=== PATIENT | male | born 1985 | race Caucasian/White ===

== ENCOUNTER 2019-04-21 19:01 | Emergency (ER) | payer OTHER ==
--- NOTE | 2019-04-21 19:41 | EDM.PDOC ---
ED HPI GENERAL MEDICAL PROBLEM - General Chief Complaint: Lower Extremity Injury/Pain Stated Complaint: PT HURT RT BIG TOE Time Seen by Provider: 04/21/19 19:38 Source of Information: Reports: Patient - History of Present Illness INITIAL COMMENTS - FREE TEXT/NARRATIVE: HISTORY AND PHYSICAL: History of present illness: []Days [place] the airport he has right great toe stuck in an escalator, or stubbed the toe on the escalator he is not sure exactly what happened as it fell out simultaneously as 5 out of 10 right great toe pain nonradiating tender to the touch on lateral border and medial toenail is intact no redness warmth or exudates I have offered x-ray and lab patient refuses both hence I have little to offer outside of this toe is tender Review of systems: As per history of present illness and below otherwise all systems reviewed and negative. Past medical history: As per history of present illness and as reviewed below otherwise noncontributory. Surgical history: As per history of present illness and as reviewed below otherwise noncontributory. Social history: No reported history of drug or alcohol abuse. Family history: As per history of present illness and as reviewed below otherwise noncontributory. Physical exam: HEENT: Atraumatic, normocephalic, pupils reactive, negative for conjunctival pallor or scleral icterus, mucous membranes moist, throat clear, neck supple, nontender, trachea midline. Lungs: Clear to auscultation, breath sounds equal bilaterally, chest nontender. Heart: S1S2, regular, negative for clicks, rubs, or JVD. Abdomen: Soft, nondistended, nontender. Negative for masses or hepatosplenomegaly. Negative for costovertebral tenderness. Pelvis: Stable nontender. Genitourinary: Deferred. Rectal: Deferred. Extremities: Atraumatic, negative for cords or calf pain. Neurovascular unremarkable. Neuro: Awake, alert, oriented. Cranial nerves II through XII unremarkable. Cerebellum unremarkable. Motor and sensory unremarkable throughout. Exam nonfocal. Diagnostics: ptrefuses lab or x-ray] Therapeutics: [Rest ice ibuprofen Consider raad tape Hard soled shoe offered] Impression: [Right great toe injury] Definitive disposition and diagnosis as appropriate pending reevaluation and review of above. right toe Pain Score (Numeric/FACES): 9 - Related Data Allergies Allergy/AdvReac Type Severity Reaction Status Date / Time No Known Allergies Allergy Verified 04/21/19 19:21 Home Meds: Home Meds Escitalopram [Lexapro] 20 mg PO DAILY 04/21/19 [History] Omeprazole 04/21/19 [History] Review of Systems - Review of Systems Review Of Systems: See Below ED EXAM, GENERAL - Physical Exam Exam: See Below Course - Vital Signs Last Recorded V/S: Last Vital Signs Temp 97.1 F 04/21/19 19:22 Pulse 88 04/21/19 19:22 Resp 16 04/21/19 19:22 BP 140/80 04/21/19 19:22 Pulse Ox 95 04/21/19 19:22 - Orders/Labs/Meds Orders: Active Orders 24 hr Category Date Time Status Toes Great Toe Rt T5 [CR] Stat Exams 04/21/19 19:30 Ordered Departure - Departure Time of Disposition: 19:40 Disposition: Home, Self-Care 01 Condition: Good Clinical Impression: Injury of right great toe - Discharge Information Referrals: PCP,None [Primary Care Provider] - Additional Instructions: The following information is given to patients seen in the emergency department who are being discharged to home. This information is to outline your options for follow-up care. We provide all patients seen in our emergency department with a follow-up referral. The need for follow-up, as well as the timing and circumstances, are variable depending upon the specifics of your emergency department visit. If you don't have a primary care physician on staff, we will provide you with a referral. We always advise you to contact your personal physician following an emergency department visit to inform them of the circumstance of the visit and for follow-up with them and/or the need for any referrals to a consulting specialist. The emergency department will also refer you to a specialist when appropriate. This referral assures that you have the opportunity for follow-up care with a specialist. All of these measure are taken in an effort to provide you with optimal care, which includes your follow-up. Under all circumstances we always encourage you to contact your private physician who remains a resource for coordinating your care. When calling for follow-up care, please make the office aware that this follow-up is from your recent emergency room visit. If for any reason you are refused follow-up, please contact the [facility] emergency department at and asked to speak to the emergency department charge nurse. - My Orders Last 24 Hours: My Active Orders 04/21/19 19:30 Toes Great Toe Rt T5 [CR] Stat - Assessment/Plan Last 24 Hours: My Active Orders 04/21/19 19:30 Toes Great Toe Rt T5 [CR] Stat
== END 2019-04-21 19:51 | disposition home or self-care (01) ==
LOC: MW.ED 19:01
DX: S99.921A Unspecified injury of right foot, initial encounter (principal); Z79.899 Other long term (current) drug therapy; W22.8XXA Striking against or struck by other objects, initial encounter; Y92.520 Airport as the place of occurrence of the external cause
CPT/HCPCS: 99282; 99283

== ENCOUNTER 2019-10-07 07:20 | Emergency (ER) | payer OTHER ==
[2019-10-07] MEDS: Sodium Chloride 0.9% 1,000 ML IV SCH ×2 (07:48→09:32)
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
--- NOTE | 2019-10-07 08:12 | CR ---
INDICATION: ETOH. TECHNIQUE: Chest 1 view COMPARISON: None. FINDINGS: No focal consolidation, pleural effusion, or pneumothorax. Normal heart size and pulmonary vascularity. The bones are unremarkable. IMPRESSION: No acute cardiopulmonary findings. Dictated by Karen Thrasher MD @ Oct 07 2019 8:10AM Signed by Dr. Karen Thrasher @ Oct 07 2019 8:11AM
[2019-10-07 08:34] LABS: BLOOD UREA NITROGEN,BUN 10 mg/dL (7.0-18.0); CARBON DIOXIDE,CO2 26.2 mmol/L (21.0-32.0); CHLORIDE,CL 109 mmol/L (98-107); GLUCOSE RANDOM 107 mg/dL (74-106); POTASSIUM,K 3.9 mmol/L (3.5-5.1); SODIUM,NA 147 mmol/L (136-148)
[2019-10-07] MEDS: LORazepam 2 MG/ML SDV IVPUSH ONE ×2 (08:45→09:32)
== END 2019-10-07 10:57 | disposition home or self-care (01) ==
LOC: MW.ED 07:20
DX: F10.10 Alcohol abuse, uncomplicated (principal); Y90.8 Blood alcohol level of 240 mg/100 ml or more; F17.210 Nicotine dependence, cigarettes, uncomplicated
CPT/HCPCS: 36415; 71045; 71045-26; 80053; 80305-QW; 82375; 83735; 85025; 96361; 96374; 99283; 99285-25; G0480; J2060; J7030

== ENCOUNTER 2019-10-07 23:49 | Emergency (ER) | payer OTHER ==
[2019-10-08] MEDS ORDERED: Diazepam 2 MG Tab PO ONE (00:33)
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
== END 2019-10-08 01:03 | disposition home or self-care (01) ==
LOC: MW.ED 23:49
DX: F10.230 Alcohol dependence with withdrawal, uncomplicated (principal); F17.210 Nicotine dependence, cigarettes, uncomplicated; Z79.899 Other long term (current) drug therapy
CPT/HCPCS: 99284; A9270; 99283

== ENCOUNTER 2019-10-08 10:49 | Observation (INO) | payer OTHER ==
--- NOTE | 2019-10-08 11:33 | EDM.PDOC ---
ED HPI GENERAL MEDICAL PROBLEM - General Chief Complaint: General Stated Complaint: ALCOHOL WITHDRAWALS Time Seen by Provider: 10/08/19 11:15 Source of Information: Reports: Patient History Limitations: Reports: No Limitations - History of Present Illness INITIAL COMMENTS - FREE TEXT/NARRATIVE: Returns for the third time in two days stating that he wants help to deal with his alcohol. He states that he has never had a seizure and does not do any other drugs. I discussed this case with the Resident of Dr. Lynch. He said he would talk with her and come down to see the patient. Onset: Gradual Duration: Chronic Severity: Moderate (alcohol abuse wanting help.) Improves with: Reports: Medication (Ativan) Worsens with: Reports: Other (Not taking meds and drinking whisky and beer.) - Related Data Allergies Allergy/AdvReac Type Severity Reaction Status Date / Time No Known Allergies Allergy Verified 10/08/19 10:55 Past Medical History HEENT History: Reports: None Cardiovascular History: Reports: Arrhythmia Respiratory History: Reports: None Gastrointestinal History: Reports: None Genitourinary History: Reports: None Musculoskeletal History: Reports: Back Pain, Chronic Neurological History: Reports: None Psychiatric History: Reports: Anxiety, Depression Endocrine/Metabolic History: Reports: None Hematologic History: Reports: None Immunologic History: Reports: None Oncologic (Cancer) History: Reports: None Dermatologic History: Reports: None - Infectious Disease History Infectious Disease History: Reports: Chicken Pox - Past Surgical History Head Surgeries/Procedures: Reports: None HEENT Surgical History: Reports: None Cardiovascular Surgical History: Reports: None Respiratory Surgical History: Reports: None GI Surgical History: Reports: None Male Surgical History: Reports: None Endocrine Surgical History: Reports: None Neurological Surgical History: Reports: None Musculoskeletal Surgical History: Reports: None Oncologic Surgical History: Reports: None Dermatological Surgical History: Reports: None Social & Family History - Family History Family Medical History: Noncontributory - Caffeine Use Caffeine Use: Reports: Coffee, Energy Drinks, Soda, Tea - Recreational Drug Use Recreational Drug Use: No ED ROS GENERAL - Review of Systems Review Of Systems: See Below Constitutional: Reports: No Symptoms HEENT: Reports: No Symptoms Respiratory: Reports: No Symptoms Cardiovascular: Reports: No Symptoms Endocrine: Reports: No Symptoms GI/Abdominal: Reports: No Symptoms : Reports: No Symptoms Musculoskeletal: Reports: No Symptoms Skin: Reports: No Symptoms Neurological: Reports: No Symptoms Psychiatric: Reports: Anxiety. Denies: Hallucinations, Homicidal Ideation, Suicidal Ideation Hematologic/Lymphatic: Reports: No Symptoms Immunologic: Reports: No Symptoms ED EXAM, GENERAL - Physical Exam Exam: See Below Free Text/Narrative:: Returns for the third time in two days stating that he wants help to deal with his alcohol. He states that he has never had a seizure and does not do any other drugs. I discussed this case with the Resident of Dr. Lynch. He said he would talk with her and come down to see the patient. Exam Limited By: No Limitations General Appearance: Alert, WD/WN, No Apparent Distress, Anxious Eye Exam: Bilateral Eye: Normal Fundi, Normal Inspection, PERRL Ears: Normal External Exam, Normal Canal, Hearing Grossly Normal, Normal TMs Ear Exam: Bilateral Ear: Auricle Normal, Canal Normal, TM normal Nose: Normal Inspection, Normal Mucosa, No Blood Throat/Mouth: Normal Inspection, Normal Lips, Normal Teeth, Normal Gums, Normal Oropharynx, Normal Voice, No Airway Compromise Head: Atraumatic, Normocephalic Neck: Normal Inspection, Supple, Non-Tender, Full Range of Motion Respiratory/Chest: No Respiratory Distress, Lungs Clear, Normal Breath Sounds, No Accessory Muscle Use, Chest Non-Tender Cardiovascular: Normal Peripheral Pulses, Regular Rate, Rhythm, No Edema, No Gallop, No JVD, No Murmur, No Rub Peripheral Pulses: 4+: Carotid (L), Carotid (R), Radial (L), Radial (R), Popliteal (L), Popliteal (R), Dorsalis Pedis (L), Dorsalis Pedis (R) GI/Abdominal: Normal Bowel Sounds, Soft, Non-Tender, No Organomegaly, No Distention, No Abnormal Bruit, No Mass. No: Hepatomegaly Back Exam: Normal Inspection, Full Range of Motion, NT Extremities: Normal Inspection, Normal Range of Motion, Non-Tender, Normal Capillary Refill, No Pedal Edema Neurological: Alert, Oriented, CN II-XII Intact, Normal Cognition, Normal Gait, Normal Reflexes, No Motor/Sensory Deficits Psychiatric: Anxious, Tearful (anking for help dealing with his alcohol problem. ) Lymphatic: No Adenopathy Course - Vital Signs Last Recorded V/S: Last Vital Signs Temp 97.0 F 10/08/19 10:56 Pulse 85 12/21/19 10:56 Resp 19 10/08/19 10:56 BP 136/97 H 10/08/19 10:56 Pulse Ox 99 10/08/19 10:56 - Orders/Labs/Meds Orders: Active Orders 24 hr Category Date Time Status Admission Status [Patient Status] [ADT] Stat ADT 10/08/19 13:05 Active CIWAA Assessment [RC] Q1H Care 10/08/19 13:07 Active DRUG SCREEN, URINE [URCHEM] Stat Lab 10/08/19 11:52 Ordered LORazepam [Ativan] Med 10/08/19 11:45 Active 1 mg IVPUSH Q8H PRN LORazepam [Ativan] Med 10/08/19 13:10 Active See Protocol IVPUSH Q2H PRN MVI, Adult with Vitamin K [Infuvite Adult] 10 ml Med 10/08/19 11:43 Active Thiamine [Vitamin B-1] 100 mg Folic Acid 1 mg Sodium Chloride 0.9% [Normal Saline] 1,000 ml IV ONETIME Code Status [Resuscitation Status] Stat Resus Stat 10/08/19 13:07 Ordered Medication Orders Multivitamins/Minerals 10 ml/Thiamine HCl 100 mg/ Folic Acid 1 mg/ Sodium Chloride 1,011.2 mls @ 125 mls/hr IV ONETIME ONE Stop: 10/08/19 19:48 Last Admin: 10/08/19 11:59 Dose: 125 mls/hr Lorazepam (Ativan) 1 mg IVPUSH Q8H PRN PRN Reason: Agitation Last Admin: 10/08/19 11:58 Dose: 1 mg Lorazepam (Ativan) 0 mg IVPUSH Q2H PRN; Protocol PRN Reason: Anxiety Labs: Laboratory Tests 10/08/19 10/08/19 Range/Units 12:00 12:00 WBC 5.61 (4.0-11.0) K/uL RBC 4.74 (4.50-5.90) M/uL Hgb 14.8 (13.0-17.0) g/dL Hct 43.1 (38.0-50.0) % MCV 90.9 (80.0-98.0) fL MCH 31.2 (27.0-32.0) pg MCHC 34.3 (31.0-37.0) g/dL RDW Std Deviation 42.3 (28.0-62.0) fl RDW Coeff of Rosalee 13 (11.0-15.0) % Plt Count 266 (150-400) K/uL MPV 9.80 (7.40-12.00) fL Neut % (Auto) 44.7 L (48.0-80.0) % Lymph % (Auto) 40.1 H (16.0-40.0) % [place] % (Auto) 8.4 (0.0-15.0) % Eos % (Auto) 6.1 (0.0-7.0) % Baso % (Auto) 0.7 (0.0-1.5) % Neut # (Auto) 2.5 (1.4-5.7) K/uL Lymph # (Auto) 2.3 (0.6-2.4) K/uL [place] # (Auto) 0.5 (0.0-0.8) K/uL Eos # (Auto) 0.3 (0.0-0.7) K/uL Baso # (Auto) 0.0 (0.0-0.1) K/uL Nucleated RBC % 0.0 /100WBC Nucleated RBCs # 0 K/uL Sodium 145 (136-148) mmol/L Potassium 4.0 (3.5-5.1) mmol/L Chloride 107 (98-107) mmol/L Carbon Dioxide 29.4 (21.0-32.0) mmol/L BUN 11 (7.0-18.0) mg/dL Creatinine 0.9 (0.8-1.3) mg/dL Est Cr Clr Drug Dosing 120.54 mL/min Estimated GFR (MDRD) > 60.0 ml/min Glucose 92 (74-106) mg/dL Calcium 8.0 L (8.5-10.1) mg/dL Magnesium 1.7 L (1.8-2.4) mg/dL Total Bilirubin 0.3 (0.2-1.0) mg/dL AST 28 (15-37) IU/L ALT 39 (14-63) IU/L Alkaline Phosphatase 79 (46-116) U/L Total Protein 6.7 (6.4-8.2) g/dL Albumin 3.7 (3.4-5.0) g/dL Globulin 3.0 (2.6-4.0) g/dL Albumin/Globulin Ratio 1.2 (0.9-1.6) Ethyl Alcohol 271 mg/dL Meds: Medications Generic Name Dose Route Start Last Admin Trade Name Freq PRN Reason Stop Dose Admin Multivitamins/Minerals 10 ml/ 1,011.2 mls @ 125 mls/hr 10/08/19 11:43 11:59 Thiamine HCl 100 mg/ Folic IV 10/08/19 19:48 125 mls/hr Acid 1 mg/ Sodium Chloride ONETIME ONE Administration Lorazepam 1 mg 10/08/19 11:45 10/08/19 11:58 Ativan IVPUSH 1 mg Q8H PRN Administration Agitation Lorazepam 0 mg 10/08/19 13:10 Ativan IVPUSH Q2H PRN Anxiety Protocol Discontinued Medications Generic Name Dose Route Start Last Admin Trade Name Freq PRN Reason Stop Dose Admin Ondansetron HCl 4 mg 10/08/19 11:48 10/08/19 11:58 Zofran IVPUSH 10/08/19 11:49 4 mg ONETIME ONE Administration Departure - Departure Time of Disposition: 13:00 Disposition: Admitted As Inpatient 67 Condition: Good Clinical Impression: Alcohol abuse - Discharge Information Sepsis Event Note - Evaluation Sepsis Screening Result: No Definite Risk - Focused Exam Vital Signs: Vital Signs Temp Pulse Resp BP Pulse Ox 10/08/19 10:56 97.0 F 85 19 136/97 H 99 Date Exam was Performed: 10/08/19 Time Exam was Performed: 13:45 - My Orders Last 24 Hours: My Active Orders 10/08/19 11:43 MVI, Adult with Vitamin K [Infuvite Adult] 10 ml Thiamine [Vitamin B-1] 100 mg Folic Acid 1 mg Sodium Chloride 0.9% [Normal Saline] 1,000 ml IV ONETIME 10/08/19 11:45 LORazepam [Ativan] 1 mg IVPUSH Q8H PRN 10/08/19 11:52 DRUG SCREEN, URINE [URCHEM] Stat - Assessment/Plan Last 24 Hours: My Active Orders 10/08/19 11:43 MVI, Adult with Vitamin K [Infuvite Adult] 10 ml Thiamine [Vitamin B-1] 100 mg Folic Acid 1 mg Sodium Chloride 0.9% [Normal Saline] 1,000 ml IV ONETIME 10/08/19 11:45 LORazepam [Ativan] 1 mg IVPUSH Q8H PRN 10/08/19 11:52 DRUG SCREEN, URINE [URCHEM] Stat
[2019-10-08] MEDS ORDERED: MVI, Adult with Vitamin K 10 ML, Thiamine 100 MG, Folic Acid 1 MG in Sodium Chloride 0.... IV ONE ×4 (11:43)
[2019-10-08] MEDS ORDERED: LORazepam 2 MG/ML SDV IVPUSH PRN (11:45)
[2019-10-08] MEDS ORDERED: Ondansetron 4 MG/2 ML SDV IVPUSH ONE (11:48)
[2019-10-08 12:33] LABS: BLOOD UREA NITROGEN,BUN 11 mg/dL (7.0-18.0); CARBON DIOXIDE,CO2 29.4 mmol/L (21.0-32.0); CHLORIDE,CL 107 mmol/L (98-107); GLUCOSE RANDOM 92 mg/dL (74-106); SODIUM,NA 145 mmol/L (136-148)
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
[2019-10-08] MEDS: LORazepam 2 MG/ML SDV IVPUSH PRN ×3 (14:25→22:21)
[2019-10-08] MEDS ORDERED: Ketorolac 30 MG/ML SDV IVPUSH ONE (16:43)
[2019-10-08] MEDS: Ketorolac 30 MG/ML SDV IVPUSH PRN (22:31)
[2019-10-09] MEDS: LORazepam 2 MG/ML SDV IVPUSH PRN ×7 (02:22→23:34)
[2019-10-09] MEDS: Ketorolac 30 MG/ML SDV IVPUSH PRN ×3 (05:01→22:14)
[2019-10-09 06:49] LABS: BLOOD UREA NITROGEN,BUN 14 mg/dL (7.0-18.0); CARBON DIOXIDE,CO2 27.6 mmol/L (21.0-32.0); CHLORIDE,CL 105 mmol/L (98-107); GLUCOSE RANDOM 97 mg/dL (74-106); POTASSIUM,K 4.6 mmol/L (3.5-5.1); SODIUM,NA 142 mmol/L (136-148)
[2019-10-09] MEDS: Folic Acid 1 MG Tab PO SCH (08:25)
--- NOTE | 2019-10-09 10:14 | PCM.PN ---
- General Info Date of Service: 10/09/19 Admission Dx/Problem (Free Text): Admission Diagnosis/Problem Admission Diagnosis/Problem Withdrawal complaint Subjective Update: seen and examined at bedside. ALAN this AM around 11-12, Functional Status: Reports: Tolerating Diet - Review of Systems General: Reports: Weakness. Denies: Fever, Fatigue, Malaise Pulmonary: Denies: Shortness of Breath Cardiovascular: Denies: Chest Pain, Palpitations, Dyspnea on Exertion Gastrointestinal: Denies: Abdominal Pain, Constipation, Decreased Appetite Genitourinary: Denies: Dysuria, Frequency - Patient Data Vitals - Most Recent: Last Vital Signs Temp 36.5 C 10/09/19 07:35 Pulse 61 10/09/19 07:35 Resp 14 10/09/19 07:35 BP 147/80 H 10/09/19 07:35 Pulse Ox 99 10/09/19 07:35 Weight - Most Recent: 86.183 kg I&O - Last 24 Hours: Intake & Output 10/08/19 10/09/19 10/09/19 22:59 06:59 14:59 Intake Total 750 Output Total 900 Balance -150 Lab Results Last 24 Hours: Laboratory Results - last 24 hr 10/08/19 10/08/19 10/08/19 Range/Units 12:00 12:00 22:20 WBC 5.61 (4.0-11.0) K/uL RBC 4.74 (4.50-5.90) M/uL Hgb 14.8 (13.0-17.0) g/dL Hct 43.1 (38.0-50.0) % MCV 90.9 (80.0-98.0) fL MCH 31.2 (27.0-32.0) pg MCHC 34.3 (31.0-37.0) g/dL RDW Std Deviation 42.3 (28.0-62.0) fl RDW Coeff of Rosalee 13 (11.0-15.0) % Plt Count 266 (150-400) K/uL MPV 9.80 (7.40-12.00) fL Neut % (Auto) 44.7 L (48.0-80.0) % Lymph % (Auto) 40.1 H (16.0-40.0) % [place] % (Auto) 8.4 (0.0-15.0) % Eos % (Auto) 6.1 (0.0-7.0) % Baso % (Auto) 0.7 (0.0-1.5) % Neut # (Auto) 2.5 (1.4-5.7) K/uL Lymph # (Auto) 2.3 (0.6-2.4) K/uL [place] # (Auto) 0.5 (0.0-0.8) K/uL Eos # (Auto) 0.3 (0.0-0.7) K/uL Baso # (Auto) 0.0 (0.0-0.1) K/uL Nucleated RBC % 0.0 /100WBC Nucleated RBCs # 0 K/uL Sodium 145 (136-148) mmol/L Potassium 4.0 (3.5-5.1) mmol/L Chloride 107 (98-107) mmol/L Carbon Dioxide 29.4 (21.0-32.0) mmol/L BUN 11 (7.0-18.0) mg/dL Creatinine 0.9 (0.8-1.3) mg/dL Est Cr Clr Drug Dosing 120.54 mL/min Estimated GFR (MDRD) > 60.0 ml/min Glucose 92 (74-106) mg/dL Calcium 8.0 L (8.5-10.1) mg/dL Magnesium 1.7 L (1.8-2.4) mg/dL Total Bilirubin 0.3 (0.2-1.0) mg/dL AST 28 (15-37) IU/L ALT 39 (14-63) IU/L Alkaline Phosphatase 79 (46-116) U/L Total Protein 6.7 (6.4-8.2) g/dL Albumin 3.7 (3.4-5.0) g/dL Globulin 3.0 (2.6-4.0) g/dL Albumin/Globulin Ratio 1.2 (0.9-1.6) Urine Opiates Screen NEGATIVE (NEGATIVE) Ur Oxycodone Screen NEGATIVE (NEGATIVE) Urine Methadone Screen NEGATIVE (NEGATIVE) Ur Barbiturates Screen NEGATIVE (NEGATIVE) Ur Phencyclidine Scrn NEGATIVE (NEGATIVE) Ur Amphetamine Screen NEGATIVE (NEGATIVE) U Methamphetamines Scrn NEGATIVE (NEGATIVE) U Benzodiazepines Scrn POSITIVE (NEGATIVE) U Cocaine Metab Screen NEGATIVE (NEGATIVE) U Marijuana (THC) Screen NEGATIVE (NEGATIVE) Ethyl Alcohol 271 mg/dL 10/09/19 10/09/19 Range/Units 06:15 06:15 WBC 4.75 (4.0-11.0) K/uL RBC 4.32 L (4.50-5.90) M/uL Hgb 13.4 (13.0-17.0) g/dL Hct 38.6 (38.0-50.0) % MCV 89.4 (80.0-98.0) fL MCH 31.0 (27.0-32.0) pg MCHC 34.7 (31.0-37.0) g/dL RDW Std Deviation 39.6 (28.0-62.0) fl RDW Coeff of Rosalee 12 (11.0-15.0) % Plt Count 229 (150-400) K/uL MPV 9.90 (7.40-12.00) fL Neut % (Auto) 70.1 (48.0-80.0) % Lymph % (Auto) 14.7 L (16.0-40.0) % [place] % (Auto) 9.5 (0.0-15.0) % Eos % (Auto) 5.1 (0.0-7.0) % Baso % (Auto) 0.6 (0.0-1.5) % Neut # (Auto) 3.3 (1.4-5.7) K/uL Lymph # (Auto) 0.7 (0.6-2.4) K/uL [place] # (Auto) 0.5 (0.0-0.8) K/uL Eos # (Auto) 0.2 (0.0-0.7) K/uL Baso # (Auto) 0.0 (0.0-0.1) K/uL Nucleated RBC % 0.0 /100WBC Nucleated RBCs # 0 K/uL Sodium 142 (136-148) mmol/L Potassium 4.6 (3.5-5.1) mmol/L Chloride 105 (98-107) mmol/L Carbon Dioxide 27.6 (21.0-32.0) mmol/L BUN 14 (7.0-18.0) mg/dL Creatinine 0.8 (0.8-1.3) mg/dL Est Cr Clr Drug Dosing 135.61 mL/min Estimated GFR (MDRD) > 60.0 ml/min Glucose 97 (74-106) mg/dL Calcium 8.4 L (8.5-10.1) mg/dL Magnesium (1.8-2.4) mg/dL Total Bilirubin 0.5 (0.2-1.0) mg/dL AST 25 (15-37) IU/L ALT 32 (14-63) IU/L Alkaline Phosphatase 63 (46-116) U/L Total Protein 5.9 L (6.4-8.2) g/dL Albumin 3.2 L (3.4-5.0) g/dL Globulin 2.7 (2.6-4.0) g/dL Albumin/Globulin Ratio 1.2 (0.9-1.6) Urine Opiates Screen (NEGATIVE) Ur Oxycodone Screen (NEGATIVE) Urine Methadone Screen (NEGATIVE) Ur Barbiturates Screen (NEGATIVE) Ur Phencyclidine Scrn (NEGATIVE) Ur Amphetamine Screen (NEGATIVE) U Methamphetamines Scrn (NEGATIVE) U Benzodiazepines Scrn (NEGATIVE) U Cocaine Metab Screen (NEGATIVE) U Marijuana (THC) Screen (NEGATIVE) Ethyl Alcohol mg/dL Med Orders - Current: Current Medications Chlordiazepoxide HCl (Librium) 5 mg PO BID AK[facility] Folic Acid (Folic Acid) 1 mg PO DAILY AKUA Last Admin: 10/09/19 08:25 Dose: 1 mg Ketorolac Tromethamine (Toradol) 30 mg IVPUSH Q6H PRN PRN Reason: Pain Stop: 10/13/19 19:53 Last Admin: 10/09/19 05:01 Dose: 30 mg Lorazepam (Ativan) 0 mg IVPUSH Q2H PRN; Protocol PRN Reason: Anxiety Last Admin: 10/09/19 08:27 Dose: 2 mg Thiamine HCl (Vitamin B-1) 100 mg PO BEDTIME AKUA Discontinued Medications Chlordiazepoxide HCl (Librium) 5 mg PO BID PRN PRN Reason: Agitation Multivitamins/Minerals 10 ml/Thiamine HCl 100 mg/ Folic Acid 1 mg/ Sodium Chloride 1,011.2 mls @ 125 mls/hr IV ONETIME ONE Stop: 10/08/19 19:48 Last Admin: 10/08/19 11:59 Dose: 125 mls/hr Ketorolac Tromethamine (Toradol) 30 mg IVPUSH ONETIME ONE Stop: 10/08/19 16:44 Last Admin: 10/08/19 17:03 Dose: 30 mg Lorazepam (Ativan) 1 mg IVPUSH Q8H PRN PRN Reason: Agitation Last Admin: 10/08/19 11:58 Dose: 1 mg Ondansetron HCl (Zofran) 4 mg IVPUSH ONETIME ONE Stop: 10/08/19 11:49 Last Admin: 10/08/19 11:58 Dose: 4 mg - Exam General: Alert, Oriented HEENT: Pupils Equal Neck: Supple Lungs: Clear to Auscultation, Normal Respiratory Effort Cardiovascular: Regular Rate, Regular Rhythm GI/Abdominal Exam: Normal Bowel Sounds, Soft, Non-Tender Peripheral Pulses: 3+: Dorsalis Pedis (L), Dorsalis Pedis (R) Skin: Warm Psy/Mental Status: Anxious, Withdrawal Symptoms Sepsis Event Note - Evaluation Sepsis Screening Result: No Definite Risk - Focused Exam Vital Signs: Vital Signs Temp Pulse Resp BP Pulse Ox 10/09/19 07:35 36.5 C 61 14 147/80 H 99 10/09/19 04:00 36.6 C 56 L 16 136/92 H 97 10/08/19 23:58 36.4 C 56 L 12 121/82 95 Date Exam was Performed: 10/09/19 Time Exam was Performed: 11:36 - Problem List & Annotations (1) AA (alcohol abuse) SNOMED Code(s): 44203297 Code(s): F10.10 - ALCOHOL ABUSE, UNCOMPLICATED Status: Acute Current Visit: Yes (2) Alcohol withdrawal syndrome SNOMED Code(s): 255157934 Code(s): F10.239 - ALCOHOL DEPENDENCE WITH WITHDRAWAL, UNSPECIFIED Status: Acute Current Visit: No - Problem List Review Problem List Initiated/Reviewed/Updated: Yes - My Orders Last 24 Hours: My Active Orders 10/09/19 09:00 Folic Acid 1 mg PO DAILY 10/09/19 10:15 chlordiazePOXIDE [Librium] 5 mg PO BID 10/09/19 21:00 Thiamine [Vitamin B-1] 100 mg PO BEDTIME - Plan Plan:: 34 y/o comes in with alcohol intoxication, currently in withdrawal cont CIWA protocol, cont long acting benzo to wean off Ativan cont folic acid and thiamine supplements Patient was counseled against alcohol abuse in detail monitor and replete electrolytes as needed Will need another day to manage his symptoms
[2019-10-09] MEDS: ClonazePAM 0.5 MG Tab PO SCH (20:35)
[2019-10-09] MEDS: Propranolol 20 MG Tab PO SCH (20:35)
[2019-10-09] MEDS ORDERED: Thiamine 100 MG Tab PO SCH (21:00)
[2019-10-10] MEDS: Ketorolac 30 MG/ML SDV IVPUSH PRN (05:47)
[2019-10-10] MEDS: LORazepam 2 MG/ML SDV IVPUSH PRN (05:47)
[2019-10-10] MEDS: Folic Acid 1 MG Tab PO SCH (08:06)
[2019-10-10] MEDS: Propranolol 20 MG Tab PO SCH (08:06)
[2019-10-10] MEDS: ClonazePAM 0.5 MG Tab PO SCH (08:08)
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
== END 2019-10-10 13:00 | disposition home or self-care (01) ==
LOC: MW.ED 10:49 → MW.MS 13:26
PROVIDERS: ADMIT Student in an Organized Health Care Education/Training Program; ATTEND Student in an Organized Health Care Education/Training Program
DX: F10.239 Alcohol dependence with withdrawal, unspecified (principal); F10.229 Alcohol dependence with intoxication, unspecified; F32.9 Major depressive disorder, single episode, unspecified; F41.9 Anxiety disorder, unspecified; G89.29 Other chronic pain; M54.5 Low back pain; F17.290 Nicotine dependence, other tobacco product, uncomplicated; Z79.899 Other long term (current) drug therapy
CPT/HCPCS: 36415; 80053; 80305; 80320; 83735; 85025; A9270; J1885; J2060; J2405; J3411; J7030; G0480